=== PATIENT | female | born 1995 | race Hispanic/Latino ===

== ENCOUNTER 2016-11-14 14:31 | Emergency (ER) | payer OTHER ==
[~2016-11-14] VITALS: Ht 162.6 cm; Wt 77.1 kg
[2016-11-14 14:54] LABS: ABSOLUTE BASOPHIL COUNT 0.1 /CUMM (0.0-0.2); ABSOLUTE EOSINOPHIL COUNT 0.2 /CUMM (0.0-0.7); ABSOLUTE GRANULOCYTE CT 5.2 /CUMM (1.4-6.5); ABSOLUTE MONOCYTE COUNT 0.6 /CUMM (0.10-0.60); BASOPHIL % 0.8 % (0.0-2.0); EOSINOPHIL % 1.9 % (0-5); GRANULOCYTE % 57.6 % (42.2-75.2); HEMATOCRIT 41.7 % (37-47); MEAN CORPUSCULAR HGB 29.6 PG (27.0-31.0); MEAN CORPUSCULAR VOLUME 87.2 FL (81.0-99.0); PLATELET COUNT 394 /CUMM (130-400); RBC DISTRIBUTION WIDTH 13.3 % (11.5-14.5); RED BLOOD CELL CT 4.78 /CUMM (4.20-5.40); WHITE BLOOD CELL COUNT 9.1 /CUMM (4.8-10.8)
--- NOTE | 2016-11-14 14:54 | ED GENERAL ADULT ---
History of Present Illness General Chief Complaint: General Adult Stated Complaint: BIBA FOR CP, PER PT VISION BLURRY Source: patient, family, EMS Exam Limitations: no limitations Vital Signs & Intake/Output Vital Signs & Intake/Output Vital Signs Date Time Temp Pulse Resp B/P B/P Pulse O2 O2 Flow FiO2 Mean Ox Delivery Rate 11/14 1629 97.9 74 20 105/54 99 Room Air 11/14 1515 97 Room Air 11/14 1439 98.5 80 18 111/80 100 Room Air Allergies Coded Allergies: tree nut (Severe, ANAPHYLAXIS 11/14/16) Reconcile Medications No Known Home Medications Triage Note: PT TO ED FOR CHEST TIGHTNESS, NUMBNESS AND TINGLING IN HER LIPS AND FINGERTIPS. PT STATING ON ARRIVAL TO ED SHE IS BEGINNING TO FEEL A LITTLE BIT BETTER, CURRENTLY DENIES CP. Triage Nurses Notes Reviewed? yes HPI: Patient is a 21-year-old female presents complaining of chest tightness. Chest pain began while patient was in the shower this morning at 7:30 AM. Patient felt a wave of heat, over her, chest tightness and associated dyspnea and heart pounding sensation. She had a similar episode while she was sitting at work, reports that at that time her vision went black. Chest tightness is currently severe. Patient reports associated paresthesias in her hands, feet and her face. Patient has been trying to control her breathing to help with her chest pain and dyspnea. Patient reports that she has had some similar episodes previously but not as severe. Patient has not taken any medication for her symptoms. Patient denies contraceptive use, lower extremity pain, lower extremity edema. (JODIE GUALLPA) Past History Travel History Traveled to [place] past 21 day No Medical History Any Pertinent Medical History? none Surgical History Surgical History: non-contributory Family History Hx Contributory? No (JODIE GUALLPA) Review of Systems Review of Systems Constitutional: Denies: chills, fever. EENTM: Reports: no symptoms. Respiratory: Reports: short of breath. Denies: cough. Cardiovascular: Reports: see HPI, chest pain. GI: Denies: abdominal pain, nausea, vomiting. Genitourinary: Reports: no symptoms. Musculoskeletal: Reports: no symptoms. Skin: Reports: no symptoms. Neurological/Psychological: Reports: paresthesia. Denies: headache. Hematologic/Endocrine: Denies: bruising, bleeding. Immunologic/Allergic: Denies: splenectomy. (JODIE GUALLPA) Physical Exam Physical Exam General Appearance: well developed/nourished, alert, awake, anxious Head: atraumatic, normal appearance Eyes: Bilateral: normal appearance, PERRL, EOMI. Ears, Nose, Throat: normal pharynx, normal ENT inspection, hearing grossly normal Neck: normal inspection, supple, full range of motion Respiratory: normal breath sounds, chest non-tender, no respiratory distress, lungs clear Cardiovascular: regular rate/rhythm (NO MURMUR, RUB OR YENNY) Gastrointestinal: soft, non-tender Back: normal inspection, normal range of motion Extremities: normal inspection, normal capillary refill, normal range of motion, no edema, NO CALF TENDERNESS Neurologic/Psych: no motor/sensory deficits, awake, alert, oriented x 3 Skin: intact, normal color, warm/dry Lymphatic: no anterior cervical jaime Core Measures ACS in differential dx? Yes ASA ordered for poss ACS? No-ACS ruled out CVA/TIA Diagnosis: No Severe Sepsis Present: No Septic Shock Present: No (JODIE GUALLPA) Progress Differential Diagnoses I considered the following diagnoses in my evaluation of the patient: Acute coronary syndrome, pulmonary embolism, anxiety/panic disorder, pneumothorax, aortic dissection, cholecystitis, arrhythmia Plan of Care: Orders Procedure Date/time Status URINE 11/14 1525 Complete Add-on Test (ER Only) 11/14 1517 Active Telemetry/Vocational Horticulture Instructor 11/14 1517 Active TROPONIN LEVEL 11/14 1442 Complete HUMAN BETA HCG SCREEN 11/14 1442 Complete COMPREHENSIVE METABOLIC PANEL 11/14 1441 Complete CBC WITHOUT DIFFERENTIAL 11/14 1441 Complete EKG 11/14 1432 Active Laboratory Tests 11/14/16 1530: Urine Test NEGATIVE 11/14/16 1442: Anion Gap 17 H, Estimated GFR > 60, BUN/Creatinine Ratio 20.0, Glucose 98, Calcium 9.5, Total Bilirubin 0.8, AST 17, ALT 29, Alkaline Phosphatase 118, Troponin I < 0.01, Total Protein 7.8, Albumin 4.7, Globulin 3.1, Albumin/ Globulin Ratio 1.5, Total Beta HCG NEGATIVE, CBC w Diff NO MAN DIFF REQ, RBC 4.78, MCV 87.2, MCH 29.6, RDW 13.3, MPV 7.0 L, Gran % 57.6, Lymphocytes % 32.8, Monocytes % 6.9, Eosinophils % 1.9, Basophils % 0.8, Absolute Granulocytes 5.2, Absolute Lymphocytes 3.0, Absolute Monocytes 0.6, Absolute Eosinophils 0.2, Absolute Basophils 0.1, PUBS MCHC 34.0 PERC negative, low risk wells criteria. PE ruled out. Patient reports significant improvement after dose of Ativan. Discussed results of the EKG, labs, chest x-ray with patient. Symptoms onset at 7:30 AM this morning, no ischemic EKG changes, troponin negative, shelter monitor with no arrhythmias. Appears stable for discharge with close outpatient follow-up. (JODIE GUALLPA) Diagnostic Imaging: Viewed by Me: Radiology Read. Discussed w/RAD: Radiology Read. CXR Impression: PATIENT: NELLY LAROSE PRESENT AGE: 21 PATIENT ACCOUNT NO: [id number] : 93 LOCATION: [facility] ORDERING PHYSICIAN: JODIE SIMON SERVICE DATE: 11/14/16 EXAM TYPE: RAD - XRY-CHEST XRAY, PA AND LATERAL EXAMINATION: XR CHEST CLINICAL INFORMATION: Chest pain and dyspnea. COMPARISON: None TECHNIQUE: 2 views of the chest were obtained. FINDINGS: The cardiomediastinal silhouette is unremarkable. The lungs and pleural spaces appear clear without evidence of congestion, consolidation, or significant appearing effusion or atelectasis. There is no evidence of pneumothorax or pulmonary edema. Included osseous structures appear largely unremarkable. IMPRESSION: Unremarkable examination. DICTATED BY: COBY NICHOLSON MD DATE/TIME DICTATED:11/14/161614 COOK JELLY:JAVIER DATE/TIME TRANSCRIBED:11/14/161614 CONFIDENTIAL, DO NOT COPY WITHOUT APPROPRIATE AUTHORIZATION. <Electronically signed in Other Vendor System> SIGNED BY: COBY NICHOLSON MD 11/14/16 1621 Pre-Hospital EKG: normal axis, normal intervals, normal p-waves, normal QRS complex, normal sinus rhythm, no ST T wave changes Initial ED EKG: normal axis, normal intervals, normal p-waves, normal QRS complex, normal sinus rhythm, no ST T wave changes Rhythm Strip: normal sinus rhythm (JODIE GUALLPA) Departure Departure Time of Disposition: 1636 Disposition: HOME OR SELF CARE Condition: Stable Clinical Impression Primary Impression: Chest pain Referrals: SUYAPA RNE MD (PCP/Family) Additional Instructions: Follow up with your primary doctor within 1 week for further evaluation. Call this afternoon or in the morning for appointment. Return to the ER if worsening of symptoms. Departure Forms: Customer Survey General Discharge Information Prescriptions: Current Visit Scripts No Known Home Medications (JODIE GUALLPA) PA/EXECUTIVE STAFF ASSISTANT Co-Sign Statement Statement: ED Attending supervision documentation- [] I saw and evaluated the patient. I have also reviewed all the pertinent lab results and diagnostic results. I agree with the findings and the plan of care as documented in the PA's/EXECUTIVE STAFF ASSISTANT's documentation. [X] I have reviewed the ED Record and agree with the PA's/EXECUTIVE STAFF ASSISTANT's documentation. [] Additions or exceptions (if any) to the PAs/EXECUTIVE STAFF ASSISTANT's note and plan are summarized below: [] (DANNY MCGOWAN DO) Critical Care Note Critical Care Note Critical Care Time: non-applicable (JODIE GUALLPA)
--- NOTE | 2016-11-14 16:21 | RADIOLOGY REPORT ---
EXAMINATION: XR CHEST CLINICAL INFORMATION: Chest pain and dyspnea. COMPARISON: None TECHNIQUE: 2 views of the chest were obtained. FINDINGS: The cardiomediastinal silhouette is unremarkable. The lungs and pleural spaces appear clear without evidence of congestion, consolidation, or significant appearing effusion or atelectasis. There is no evidence of pneumothorax or pulmonary edema. Included osseous structures appear largely unremarkable. IMPRESSION: Unremarkable examination.
[2016-11-14 16:29] VITALS: BP 105/54
== END 2016-11-14 16:41 ==
LOC: ERH 14:31
PROVIDERS: Emergency Medicine
DX: R07.89 Other chest pain (principal)
CPT/HCPCS: 81025; 93005; 93010